=== PATIENT | male | born 1970 | race African-American/Black ===

== ENCOUNTER 2017-05-28 12:20 | Emergency (ER) | payer OTHER ==
[~2017-05-28] VITALS: Ht 175.3 cm; Wt 59.0 kg
[2017-05-28] MEDS ORDERED: TRAMADOL 50 MG50 MG PO (13:21)
[2017-05-28] MEDS ORDERED: AUGMENTIN 875-1 EACH PO (13:21)
[2017-05-28 13:31] VITALS: BP 136/108
== END 2017-05-28 13:33 | disposition home or self-care (01) ==
LOC: ER 12:20
DX: R51 Headache (principal); R09.81 Nasal congestion; I10 Essential (primary) hypertension; F12.10 Cannabis abuse, uncomplicated

== ENCOUNTER 2018-02-09 06:27 | Emergency (ER) | payer OTHER ==
[~2018-02-09] VITALS: Ht 175.3 cm; Wt 59.0 kg
[2018-02-09 06:27] VITALS: BP 190/119
[~2018-02-09 06:27] MED LIST: AUGMENTIN 875-1 EACH PO; TRAMADOL 50 MG50 MG PO
[2018-02-09] MEDS ORDERED: AMLODIPINE BESY10 MG PO (06:31)
[2018-02-09] MEDS ORDERED: ALEVE220 MG PO (06:32)
[2018-02-09] MEDS ORDERED: NORVASC10 MG PO (06:52)
== END 2018-02-09 07:11 | disposition home or self-care (01) ==
LOC: ER 06:27
DX: I10 Essential (primary) hypertension (principal); K08.89 Other specified disorders of teeth and supporting structures; F17.210 Nicotine dependence, cigarettes, uncomplicated; Z88.8 Allergy status to other drugs, medicaments and biological substances

== ENCOUNTER 2019-12-18 08:51 | Emergency (ER) | payer OTHER ==
[~2019-12-18] VITALS: Ht 175.3 cm; Wt 59.0 kg
[~2019-12-18 08:51] MED LIST changes: +ALEVE220 MG PO; +AMLODIPINE BESY10 MG PO; +NORVASC10 MG PO
[2019-12-18] MEDS ORDERED: NORVASC5 M1 PO (10:05)
[2019-12-18 10:09] VITALS: BP 158/102
== END 2019-12-18 10:16 | disposition home or self-care (01) ==
LOC: ER 08:51
DX: I10 Essential (primary) hypertension (principal); F17.210 Nicotine dependence, cigarettes, uncomplicated; Z79.899 Other long term (current) drug therapy; Z88.8 Allergy status to other drugs, medicaments and biological substances

== ENCOUNTER 2020-01-24 10:14 | Emergency (ER) | payer OTHER ==
[~2020-01-24] VITALS: Ht 175.3 cm; Wt 63.5 kg
[~2020-01-24 10:14] MED LIST changes: +NORVASC5 M1 PO
[2020-01-24] MEDS ORDERED: NORVASC5 MG PO (11:36)
[2020-01-24 11:44] VITALS: BP 165/106
== END 2020-01-24 11:45 | disposition home or self-care (01) ==
LOC: ER 10:14
DX: I10 Essential (primary) hypertension (principal); F17.210 Nicotine dependence, cigarettes, uncomplicated; Z76.0 Encounter for issue of repeat prescription; Z79.899 Other long term (current) drug therapy; Z88.8 Allergy status to other drugs, medicaments and biological substances

== ENCOUNTER 2020-05-29 01:52 | Emergency (ER) | payer OTHER ==
[~2020-05-29] VITALS: Ht 175.3 cm; Wt 58.5 kg
[~2020-05-29 01:52] MED LIST changes: +NORVASC5 MG PO
[2020-05-29] MEDS ORDERED: NORVASC5 M1 PO (02:34)
[2020-05-29 02:40] VITALS: BP 146/108
== END 2020-05-29 02:40 | disposition home or self-care (01) ==
LOC: ER 01:52
DX: I10 Essential (primary) hypertension (principal); R51.9 Headache, unspecified; F17.210 Nicotine dependence, cigarettes, uncomplicated; Z79.899 Other long term (current) drug therapy; Z88.8 Allergy status to other drugs, medicaments and biological substances